=== PATIENT | male | born 2000 | race Caucasian/White ===

== ENCOUNTER 2019-04-15 20:01 | Emergency (ER) | payer OTHER ==
[~2019-04-15] VITALS: Ht 167.6 cm; Wt 61.2 kg
[2019-04-15 21:32] VITALS: BP 118/67
== END 2019-04-15 21:33 | disposition home or self-care (01) ==
LOC: ED 20:01
DX: L03.115 Cellulitis of right lower limb (principal)

== ENCOUNTER 2019-05-08 10:20 | Emergency (ER) | payer OTHER ==
[~2019-05-08] VITALS: Ht 167.6 cm; Wt 60.3 kg
[2019-05-08 10:23] VITALS: Ht 167.6 cm; Wt 60.3 kg
[2019-05-08 12:15] VITALS: BP 110/63
== END 2019-05-08 12:15 | disposition home or self-care (01) ==
LOC: ED 10:20
DX: R21 Rash and other nonspecific skin eruption (principal)
CPT/HCPCS: J7030